=== PATIENT | female | born 2000 | race Hispanic/Latino ===

== ENCOUNTER 2018-10-03 11:24 | Emergency (ER) | payer BC, OTHER ==
[~2018-10-03] VITALS: Ht 170.2 cm; Wt 93.0 kg
[~2018-10-03 11:24] MED LIST: LEXAPRO10 MG PO
--- OUTSIDE RECORDS SUMMARY | 2018-10-03 11:27 | XMS REPORT ---
Author [facility] Address Unknown Phone Unavailable Care Team Providers Care Prover Name Role Phone Nuria HERZOG Unavailable Unavailable Problems This patient has no known problems. Allergies, Adverse Reactions, Alerts This patient has no known allergies or adverse reactions. Medications This patient has no known medications. Results Test Description Test Time Test Comments Text Results Atomic Results Result Comments US GALLBLADDER [place] [address] Patient Name: RHONDA NG MR #: [id number] : 2000 Age/Sex: 16/F Req #: [id number] Adm Physician: Ordered by: REAGAN HERZOG MD Report #: [id number] Location: ER Room/Bed: Procedure: [id number] US/US GALLBLADDER Exam Date: Exam Time: REPORT STATUS: Signed PROCEDURE: US GALLBLADDER COMPARISON: None. INDICATION: Abdominal pain TECHNIQUE: Chapman scale color Doppler ultrasound right upper quadrant FINDINGS: Imaged portions of the inferior vena cava and abdominal aorta are normal. The pancreas is obscured. Right liver span 14 cm. Normal echogenicity. Portal vein diameter 1.2 cm; normal flow direction. Normal gallbladder. Wall thickness 2 mm. Common bile duct diameter 3 mm. No pericholecystic fluid or Casper's sign. Right kidney: 10.3 x 4.3 x 5.9 cm. Normal kidney. No ascites. CONCLUSION: Normal right upper quadrant ultrasound. Dictated by: Loc Vidal M.D. on 02/23/2017 at 10:58 Electronically approved by: Loc Vidal M.D. on 02/23/2017 at 10:58 Dictated By: LOC VIDAL MD [id number] Transcribed By: AB on 02/23/17 1058 COPY TO: REAGAN HERZOG MD
[2018-10-03] MEDS ORDERED: LIDOCAINE 2%/ EPINEPHRINE 20ML MDV INJ ONE (12:30)
[2018-10-03] MEDS ORDERED: HYDROCODONE/APAP 10MG-325MG TAB PO ONE (12:30)
== END 2018-10-03 15:16 | disposition home or self-care (01) ==
LOC: ER 11:24
DX: L05.01 Pilonidal cyst with abscess (principal); M32.9 Systemic lupus erythematosus, unspecified; F41.9 Anxiety disorder, unspecified; F32.9 Major depressive disorder, single episode, unspecified
CPT/HCPCS: 99284

== ENCOUNTER 2018-10-14 03:10 | Emergency (ER) | payer BC | END 2018-10-14 03:22 | disposition left against medical advice (07) | LOC: ER 03:10 | DX: R51 Headache (principal) ==